=== PATIENT | female | born 1970 | race Caucasian/White ===

== ENCOUNTER 2018-09-02 00:53 | Outpatient (CLI) | payer OTHER, SELFPAY ==
[2018-09-02] MEDS: Gadoterate meglumine 20 ML VIAL 16 ML IVP (10:36)
--- NOTE | 2018-09-02 10:57 | DI.MRI_ITS ---
SYMPTOM/DIAGNOSIS: CHRONIC MIGRAINE W/O AURA. INTRACTABLE, STATUS MIGRAINOSUS G43.711 BRAIN MRI: 09/02/18 MRI examination of the brain was performed utilizing pituitary protocol with scanning pre and post contrast high resolution imaging of the region of the sella turcica. On whole brain imaging there is no significant signal abnormality in the brain. No enhancing lesion or mass lesion. The orbital structures appear intact. The temporal bone structures appear intact. There is normal flow void in the [place] vasculature. Diffusion weighted imaging shows no evidence of infarction. Susceptibility weight imaging shows no evidence of intracranial hemorrhage. The pituitary is normal in size with a concave superior margin. No pituitary mass or other sellar mass is identified. No enhancing lesion seen. CONCLUSION: Negative brain MRI with attention to the region of the pituitary.
== END 2018-09-02 01:13 ==
PROVIDERS: PCP Nurse Practitioner Adult Health; Visit Provider Psychiatry & Neurology Neurology
DX: G43.711 Chronic migraine without aura, intractable, with status migrainosus (principal)
CPT/HCPCS: 70553